=== PATIENT | male | born 1965 | race Caucasian/White ===

== ENCOUNTER 2022-11-08 17:24 | Emergency (ER) | payer MEDICAID ==
--- NOTE | 2022-11-08 17:40 | NUR ---
CALLED TO TRIAGE,NO ANSWER
--- NOTE | 2022-11-08 18:00 | NUR ---
CALLED TO TRIAGE, NO ANSWER
== END 2022-11-08 18:01 | disposition left against medical advice (07) ==
LOC: ER 17:30
DX: Z53.21 Procedure and treatment not carried out due to patient leaving prior to being seen by health care provider (principal)

== ENCOUNTER 2023-07-13 11:13 | Emergency (ER) | payer MEDICAID ==
[~2023-07-13] VITALS: Ht 177.8 cm; Wt 81.2 kg
[2023-07-13] MEDS ORDERED: CEFTRIAXONE 1GM BAG (ER ONLY) 50 ML IV ONE (11:52)
[2023-07-13] MEDS ORDERED: LABETALOL HCL IV 100MG VIAL ONE (11:53)
[2023-07-13] MEDS ORDERED: CEFTRIAXONE 1GM BAG (ER ONLY) 1 GM/50 ML PIGGYBACK IV ONE (12:00)
[2023-07-13] MEDS ORDERED: LABETALOL HCL IV 100MG VIAL IV ONE (12:00)
[2023-07-13 12:14] LABS: BASOPHILS # (AUTO) 0.1 K/uL (0.0-0.2); EOSINOPHILS # (AUTO) 0.3 K/uL (0.0-0.7); EOSINOPHILS % (AUTO) 4.5 % (0.0-6.0); HEMATOCRIT 45 % (39-51); HEMOGLOBIN 15.4 g/dL (13.5-17.5); LYMPHOCYTES # (AUTO) 1.3 K/uL (0.8-4.8); LYMPHOCYTES % (AUTO) 20.4 % (20.0-44.0); MEAN CORPUSCULAR HEMOGLOBIN 30 PG (26.0-33.0); MEAN CORPUSCULAR HGB CONC 34 g/dl (31.0-36.0); MEAN CORPUSCULAR VOLUME 87 fL (80-96); MONOCYTES # (AUTO) 0.3 K/uL (0.1-1.30); MONOCYTES % (AUTO) 4.2 % (2.0-12.0); NEUTROPHILS # (AUTO) 4.4 K/uL (1.8-8.9); NEUTROPHILS % (AUTO) 69.9 % (43.0-81.0); PLATELET COUNT (AUTO) 200 K/uL (150-450); RED BLOOD CELL COUNT(AUTO) 5.19 MIL/uL (4.5-6.0); RED CELL DISTRIBUTION WIDTH 13.5 % (11.5-15.0); WHITE BLOOD COUNT (AUTO) 6.3 K/uL (4.3-11.0)
[2023-07-13 12:19] LABS: CALCIUM, SERUM 8.8 mg/dL (8.5-10.1); CARBON DIOXIDE 25 mmol/L (21-32); CHLORIDE 106 mmol/L (98-107); CREATININE 0.8 mg/dL (0.6-1.3); GLUCOSE 104 mg/dL (74-106); POTASSIUM 3.2 mmol/L (3.5-5.1); SODIUM SERUM 140 mmol/L (136-145); UREA NITROGEN, BLOOD 10 mg/dL (7-18)
[2023-07-13] MEDS ORDERED: CLONIDINE HCL 0.1 MG TABLET PO ONE (14:00)
[2023-07-13] MEDS ORDERED: KETOROLAC TROMETHAMINE INJ 30 MG/ML VIAL IV ONE (14:00)
[2023-07-13] MEDS ORDERED: CLONIDINE HCL 0.1 MG TABLET ONE (14:01)
[2023-07-13] MEDS ORDERED: KETOROLAC TROMETHAMINE INJ 30 MG/ML VIAL ONE (14:01)
[2023-07-13] MEDS ORDERED: ALBU18HF2 INH (14:26)
[2023-07-13] MEDS ORDERED: HYDR-4209 PO (14:26)
[2023-07-13] MEDS ORDERED: CLON0.3T PO (14:26)
[2023-07-13 14:39] VITALS: BP 192/128; TEMP 98.9; O2SAT 98
== END 2023-07-13 14:39 | disposition home or self-care (01) ==
LOC: ER 11:20
DX: K08.89 Other specified disorders of teeth and supporting structures (principal); I10 Essential (primary) hypertension; J45.909 Unspecified asthma, uncomplicated; F17.200 Nicotine dependence, unspecified, uncomplicated; Z79.899 Other long term (current) drug therapy
CPT/HCPCS: 99285; 70450; 96365; 71045; 96375; 93005; 70490; 85025; 80048; 36415; 84484; J3490; J1885; J0696